=== PATIENT | female | born 1990 | race Caucasian/White ===

== ENCOUNTER 2017-06-06 15:09 | Outpatient (CLI) | payer BC, MEDICAID, OTHER ==
[~2017-06-06] VITALS: Ht 160 cm; Wt 58.2 kg
[~2017-06-06 15:09] MED LIST: FOLI0.4T2 PO; PREN1TAB56 PO
[2017-06-06 15:55] VITALS: BP 115/73
== END 2017-06-06 16:44 | disposition home or self-care (01) ==
LOC: LDOP 15:09
PROVIDERS: ATTEND Student in an Organized Health Care Education/Training Program
DX: O26.892 Other specified pregnancy related conditions, second trimester (principal); V89.2XXA Person injured in unspecified motor-vehicle accident, traffic, initial encounter; Z3A.25 25 weeks gestation of pregnancy
CPT/HCPCS: 59025; 99201; G0463